=== PATIENT | female | born 1995 | race American Indian/Alaskan Native ===

== ENCOUNTER 2018-12-30 00:03 | Emergency (ER) | payer OTHER, BC ==
[2018-12-30 00:52] VITALS: BP 122/73
[2018-12-30] MEDS ORDERED: KEFLEX PO ONE ×2 (07:01→07:02)
[2018-12-30] MEDS ORDERED: ULTRAM PO ONE (07:01)
[2018-12-30] MEDS ORDERED: BOOSTRIX IM ONE (07:01)
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
== END 2018-12-30 07:33 | disposition home or self-care (01) ==
LOC: ED 00:03
DX: S71.112A Laceration without foreign body, left thigh, initial encounter (principal); S66.511A Strain of intrinsic muscle, fascia and tendon of left index finger at wrist and hand level, initial encounter; V49.59XA Passenger injured in collision with other motor vehicles in traffic accident, initial encounter; Y93.89 Activity, other specified; Y92.410 Unspecified street and highway as the place of occurrence of the external cause; Y99.8 Other external cause status
CPT/HCPCS: 82962; 90471; 90715